=== PATIENT | male | born 2000 | race African-American/Black ===

== ENCOUNTER 2023-10-14 19:29 | Emergency (ER) | payer OTHER ==
[~2023-10-14] VITALS: Ht 172.7 cm; Wt 60.0 kg
[2023-10-14 19:37] VITALS: TEMP 98.5
[2023-10-14 20:12] LABS: EOSINOPHILS % (AUTO) 1.4 % (1.0-6.0); HEMATOCRIT 42.5 % (41-53); HEMOGLOBIN 14.1 g/dL (13.5-17.5); LYMPHOCYTES # (AUTO) 1.7 K/uL (1.0-4.8); LYMPHOCYTES % (AUTO) 48.2 % (22.0-44.0); MEAN CORPUSCULAR HGB CONC 33.3 G/dL (31.0-37.0); MEAN CORPUSCULAR VOLUME 84 fL (80-100); MONOCYTES # (AUTO) 0.5 K/uL (0.1-1.0); MONOCYTES % (AUTO) 13.5 % (2.0-9.0); NEUTROPHILS # (AUTO) 1.2 K/uL (1.8-7.7); NEUTROPHILS % (AUTO) 35.9 % (40.0-70.0); PLATELET COUNT (AUTO) 257 K/uL (150-450); RED BLOOD CELL COUNT(AUTO) 5.05 MIL/uL (4.50-5.90); RED CELL DISTRIBUTION WIDTH 14.5 % (11.5-14.5); WHITE BLOOD COUNT (AUTO) 3.5 K/uL (4.5-11.0)
[2023-10-14 20:52] LABS: ALCOHOL, BLOOD (SERUM) < 3 mg/dL (0-10)
[2023-10-14 21:02] LABS: ANION GAP 9 mmol/L (8-16); CALCIUM, TOTAL 8.8 mg/dL (8.8-10.5); CARBON DIOXIDE 27 mmol/L (22-29); CHLORIDE 100 mmol/L (98-107); CREATININE 1.05 mg/dL (0.60-1.30); GLOMERULAR FILTR. RATE CALC > 60 mL/min (>60); GLUCOSE,RANDOM 94 mg/dL (70-110); SODIUM SERUM 136 mmol/L (136-145); UREA NITROGEN, BLOOD 24 mg/dL (7-18)
[2023-10-14 21:11] LABS: ALANINE AMINOTRANSFERASE 23 U/L (12-78); ALKALINE PHOSPHATASE 82 U/L (46-116); ASPARTATE AMINOTRANSFERASE 17 U/L (15-37); BILIRUBIN,TOTAL 0.6 mg/dL (0.1-1.0); TOTAL PROTEIN, SERUM 8.5 g/dL (6.4-8.2)
[2023-10-14 21:22] LABS: PH,URINE DRUG SCREEN 5.5 (5.0-8.0)
[2023-10-14 21:56] LABS: ALCOHOL, URINE DRUG SCREEN NEGATIVE (NEGATIVE); AMPHET/METH SCREEN,URINE NEGATIVE (NEGATIVE); BARBITURATE SCREEN, URINE NEGATIVE (NEGATIVE); BENZODIAZEPINES SCREEN,URINE NEGATIVE (NEGATIVE); CANNABINOID SCREEN,URINE NEGATIVE (NEGATIVE); COCAINE SCREEN,URINE NEGATIVE (NEGATIVE); METHADONE SCREEN, URINE NEGATIVE (NEGATIVE); OPIATE SCREEN,URINE NEGATIVE (NEGATIVE); PHENCYCLIDINE SCREEN,URINE NEGATIVE (NEGATIVE)
[2023-10-14 23:33] VITALS: BP 131/82; PULSE 69; RESP 16
[2023-10-16] MEDS ORDERED: OLAN10TA22 PO (09:55)
== END 2023-10-14 23:55 | disposition home or self-care (01) ==
LOC: EMS 19:31
DX: F39 Unspecified mood [affective] disorder (principal); F22 Delusional disorders; F12.90 Cannabis use, unspecified, uncomplicated
CPT/HCPCS: 99283; 80053; 85025; 36415; 80307; G0480

== ENCOUNTER 2024-01-06 01:12 | Inpatient (IN) | payer MEDICAID ==
[~2024-01-06] VITALS: Ht 180.3 cm; Wt 79.8 kg
[~2024-01-06 01:12] MED LIST: OLAN10TA22 PO
[2024-01-06] MEDS ORDERED: HALOPERIDOL 5 MG TABLET PO PRN (03:00)
[2024-01-06] MEDS ORDERED: ZOLPIDEM TARTRATE 10 MG TABLET PO PRN (03:00)
[2024-01-06 04:34] VITALS: BP 116/65; PULSE 76; RESP 18; TEMP 97.5; O2SAT 100
[2024-01-06 08:44] VITALS: BP 110/55; PULSE 60; RESP 17; TEMP 97.5; O2SAT 100
[2024-01-06] MEDS ORDERED: IBUPROFEN 600 MG TABLET PO PRN (09:00)
[2024-01-06] MEDS ORDERED: LOPERAMIDE HCL 2 MG CAPSULE PO PRN (09:00)
[2024-01-06] MEDS ORDERED: ALBUTEROL SULFATE HFA 90 MCG/PUFF 8 GM INHALER IH PRN (09:00)
[2024-01-06] MEDS ORDERED: OMEPRAZOLE 20 MG CAPSULE PO PRN (09:00)
[2024-01-06] MEDS ORDERED: ACETAMINOPHEN 325 MG TABLET PO PRN (09:00)
[2024-01-06] MEDS ORDERED: BACITRACIN 28 GM OINTMENT TP PRN (09:00)
[2024-01-06] MEDS ORDERED: MAGNESIUM HYDROXIDE SUSPENSION 30 ML UDCUP PO PRN (09:00)
[2024-01-06] MEDS ORDERED: MAG HYDROX/ALUMINUM HYD/SIMETH ES 30 ML SUSPENSION UDCUP PO PRN (09:00)
[2024-01-06] MEDS ORDERED: PETROLATUM,WHITE 28 GM JELLY TP PRN (09:00)
[2024-01-06] MEDS ORDERED: BENZOCAINE/MENTHOL LOZENGE PO PRN (09:00)
[2024-01-06] MEDS ORDERED: CloNIDine HCL 0.1 MG TABLET PO PRN (09:00)
[2024-01-06] MEDS ORDERED: DOCUSATE SODIUM 100 MG CAPSULE PO PRN (09:00)
[2024-01-06] MEDS ORDERED: ONDANSETRON HCL 4 MG TABLET PO PRN (09:00)
[2024-01-06] MEDS: LORazepam 2 MG TABLET PO PRN (20:51)
[2024-01-06] MEDS: OLANZapine 10 MG TABLET PO SCH (20:51)
[2024-01-06 21:05] VITALS: BP 110/63; PULSE 71; RESP 16; TEMP 97.5; O2SAT 98
[2024-01-07 08:41] VITALS: BP 115/73; PULSE 61; RESP 17; TEMP 97.7; O2SAT 100
[2024-01-07] MEDS: RisperiDONE 3 MG TABLET PO SCH (16:17)
[2024-01-07] MEDS: OLANZapine 7.5 MG TABLET PO SCH (20:39)
[2024-01-07 20:54] VITALS: BP 102/63; PULSE 69; RESP 20; TEMP 98; O2SAT 99
[2024-01-08 09:11] VITALS: BP 108/55; PULSE 73; RESP 18; TEMP 97.8; O2SAT 99
[2024-01-08 20:46] VITALS: BP 110/50; PULSE 80; RESP 17; TEMP 98.3; O2SAT 100
[2024-01-09 09:59] VITALS: BP 130/74; PULSE 70; RESP 18; TEMP 97.8; O2SAT 100
[2024-01-09 21:05] VITALS: BP 116/63; PULSE 92; RESP 16; TEMP 97.5; O2SAT 97
[2024-01-10 08:50] VITALS: BP 116/63; PULSE 73; RESP 18; TEMP 97; O2SAT 95
[2024-01-10 20:35] VITALS: BP 104/65; PULSE 63; RESP 18; TEMP 97.9; O2SAT 99
[2024-01-11 08:29] VITALS: BP 123/70; PULSE 96; RESP 17; TEMP 98.1; O2SAT 100
[2024-01-11 20:00] VITALS: BP 105/63; PULSE 68; RESP 16; TEMP 97.6; O2SAT 99
[2024-01-12 08:15] VITALS: BP 118/76; PULSE 60; RESP 18; TEMP 98; O2SAT 98
[2024-01-12] MEDS: RisperiDONE 4 MG TABLET PO SCH (17:00)
[2024-01-12 20:45] VITALS: BP 123/69; PULSE 80; RESP 17; TEMP 97.3; O2SAT 100
[2024-01-13 08:55] VITALS: BP 116/67; PULSE 81; RESP 18; TEMP 97; O2SAT 100
[2024-01-13] MEDS ORDERED: RISP4TAB94 PO (13:07)
== END 2024-01-13 14:30 | disposition home or self-care (01) | DRG 750 ==
LOC: B3A 02:53 → B2S 01-08 12:45
PROVIDERS: ADMIT Psychiatry & Neurology Psychiatry; ATTEND Psychiatry & Neurology Psychiatry
DX: F20.9 Schizophrenia, unspecified (principal); F32.A Depression, unspecified; F41.9 Anxiety disorder, unspecified; K59.00 Constipation, unspecified; F12.90 Cannabis use, unspecified, uncomplicated; G47.00 Insomnia, unspecified; Z79.899 Other long term (current) drug therapy
CPT/HCPCS: Z7610

== ENCOUNTER 2024-01-19 10:03 | Inpatient (IN) | payer MEDICAID, OTHER ==
[~2024-01-19] VITALS: Ht 180.3 cm; Wt 80.3 kg
[~2024-01-19 10:03] MED LIST changes: -OLAN10TA22 PO; +RISP4TAB94 PO
[2024-01-19 11:07] LABS: COVID AG,FIA SOURCE NASAL SWAB
[2024-01-19] MEDS: HALOPERIDOL LACTATE 5 MG/ML VIAL IM ONE (11:23)
[2024-01-19] MEDS: DiphenhydrAMINE HCL 50 MG/ML VIAL IM ONE (11:23)
[2024-01-19] MEDS: LORazepam 2 MG/ML VIAL IM ONE (11:23)
[2024-01-19 11:25] LABS: SARS-COV2 (COVID) ANTIGEN,FIA Negative (Negative)
[2024-01-19 13:11] LABS: BASOPHILS % (AUTO) 0.9 % (0.0-2.0); EOSINOPHILS % (AUTO) 0.7 % (1.0-6.0); HEMATOCRIT 40.7 % (41-53); HEMOGLOBIN 13.3 g/dL (13.5-17.5); LYMPHOCYTES # (AUTO) 1.1 K/uL (1.0-4.8); MEAN CORPUSCULAR HEMOGLOBIN 27.4 pg (26.0-34.0); MEAN CORPUSCULAR HGB CONC 32.7 G/dL (31.0-37.0); MEAN CORPUSCULAR VOLUME 84 fL (80-100); MONOCYTES # (AUTO) 0.4 K/uL (0.1-1.0); NEUTROPHILS % (AUTO) 39.4 % (40.0-70.0); PLATELET COUNT (AUTO) 230 K/uL (150-450); RED BLOOD CELL COUNT(AUTO) 4.86 MIL/uL (4.50-5.90); RED CELL DISTRIBUTION WIDTH 13.9 % (11.5-14.5); WHITE BLOOD COUNT (AUTO) 2.5 K/uL (4.5-11.0)
[2024-01-19 13:25] LABS: ALCOHOL, BLOOD (SERUM) < 3 mg/dL (0-10)
[2024-01-19 13:32] LABS: ANION GAP 9 mmol/L (8-16); CALCIUM, TOTAL 8.7 mg/dL (8.8-10.5); CARBON DIOXIDE 27 mmol/L (22-29); CHLORIDE 102 mmol/L (98-107); CREATININE 0.94 mg/dL (0.60-1.30); GLOMERULAR FILTR. RATE CALC > 60 mL/min (>60); GLUCOSE,RANDOM 86 mg/dL (70-110); POTASSIUM 3.8 mmol/L (3.5-5.1); SODIUM SERUM 138 mmol/L (136-145); UREA NITROGEN, BLOOD 17 mg/dL (7-18)
[2024-01-19 13:43] LABS: APPEARANCE,URINE CLEAR (CLEAR); BILIRUBIN,URINE NEGATIVE (NEGATIVE); COLOR,URINE LIGHT YELLOW (YELLOW); GLUCOSE, URINE (UA) NEGATIVE (NEGATIVE); KETONES,URINE NEGATIVE (NEGATIVE); LEUKOCYTE ESTERASE ,URINE MODERATE (NEGATIVE); NITRATE,URINE NEGATIVE (NEGATIVE); OCCULT BLOOD,URINE NEGATIVE (NEGATIVE); PH,URINE 6.5 (5.0-8.0); PROTEIN,URINE 30-70 mg/dL (NEGATIVE); UROBILINOGEN,URINE <=1.0 mg/dL (<=1.0)
[2024-01-19 13:57] LABS: BACTERIA,URINE Few /HPF (None Seen); MUCUS,URINE Moderate LPF (None Seen); RBC,URINE None Seen /HPF (0-2); SQUAMOUS EPITHELIAL CELL,UR None Seen /LPF (None Seen)
[2024-01-19 15:15] VITALS: BP 152/80; PULSE 70; RESP 17; TEMP 97.8; O2SAT 98
[2024-01-19] MEDS ORDERED: PNEUMOCOCCAL VACCINE POLYVALENT 0.5 ML SYRINGE [PPSV23] IM. ONE (17:30)
[2024-01-19 20:07] VITALS: BP 152/80; PULSE 70; RESP 18; TEMP 97; O2SAT 96
[2024-01-20 08:10] VITALS: BP 131/69; PULSE 83; RESP 20; TEMP 97.8; O2SAT 99
[2024-01-20] MEDS: RisperiDONE 4 MG TABLET PO SCH (08:18)
[2024-01-20] MEDS ORDERED: IBUPROFEN 600 MG TABLET PO PRN (09:15)
[2024-01-20] MEDS ORDERED: ALBUTEROL SULFATE HFA 90 MCG/PUFF 8 GM INHALER IH PRN (09:15)
[2024-01-20] MEDS ORDERED: PETROLATUM,WHITE 28 GM JELLY TP PRN (09:15)
[2024-01-20] MEDS ORDERED: MAGNESIUM HYDROXIDE SUSPENSION 30 ML UDCUP PO PRN (09:15)
[2024-01-20] MEDS ORDERED: CloNIDine HCL 0.1 MG TABLET PO PRN (09:15)
[2024-01-20] MEDS ORDERED: MAG HYDROX/ALUMINUM HYD/SIMETH ES 30 ML SUSPENSION UDCUP PO PRN (09:15)
[2024-01-20] MEDS ORDERED: OMEPRAZOLE 20 MG CAPSULE PO PRN (09:15)
[2024-01-20] MEDS ORDERED: BENZOCAINE/MENTHOL LOZENGE PO PRN (09:15)
[2024-01-20] MEDS ORDERED: ONDANSETRON HCL 4 MG TABLET PO PRN (09:15)
[2024-01-20] MEDS ORDERED: LOPERAMIDE HCL 2 MG CAPSULE PO PRN (09:15)
[2024-01-20] MEDS ORDERED: BACITRACIN 28 GM OINTMENT TP PRN (09:15)
[2024-01-20] MEDS ORDERED: ACETAMINOPHEN 325 MG TABLET PO PRN (09:15)
[2024-01-20] MEDS ORDERED: DOCUSATE SODIUM 100 MG CAPSULE PO PRN (09:15)
[2024-01-20] MEDS ORDERED: LORazepam 2 MG/ML VIAL ONE (16:01)
[2024-01-20] MEDS ORDERED: HALOPERIDOL LACTATE 5 MG/ML VIAL ONE (16:01)
[2024-01-20] MEDS ORDERED: DiphenhydrAMINE HCL 50 MG/ML VIAL ONE (16:01)
[2024-01-20] MEDS: DiphenhydrAMINE HCL 50 MG/ML VIAL IM ONE (16:24)
[2024-01-20] MEDS: LORazepam 2 MG/ML VIAL IM ONE (16:24)
[2024-01-20] MEDS: HALOPERIDOL LACTATE 5 MG/ML VIAL IM ONE (16:25)
[2024-01-20 20:08] VITALS: BP 113/63; PULSE 69; RESP 17; TEMP 98; O2SAT 99
[2024-01-21 09:26] VITALS: BP 128/67; PULSE 76; RESP 18; TEMP 97.9; O2SAT 99
[2024-01-21] MEDS: HALOPERIDOL 5 MG TABLET PO PRN (09:57)
[2024-01-21] MEDS: LORazepam 2 MG TABLET PO PRN (09:57)
[2024-01-21] MEDS: DiphenhydrAMINE HCL 50 MG/ML VIAL IM ONE (10:38)
[2024-01-21] MEDS: HALOPERIDOL LACTATE 5 MG/ML VIAL IM ONE (10:39)
[2024-01-21] MEDS: LORazepam 2 MG/ML VIAL IM ONE (10:40)
[2024-01-21 20:28] VITALS: BP 121/66; PULSE 99; RESP 18; TEMP 97.2; O2SAT 97
[2024-01-22] MEDS: ZOLPIDEM TARTRATE 10 MG TABLET PO PRN (01:50)
[2024-01-22 08:06] VITALS: BP 124/60; PULSE 85; RESP 16; TEMP 97.6; O2SAT 95
[2024-01-22] MEDS: LORazepam 2 MG/ML VIAL IM ONE (09:48)
[2024-01-22] MEDS: DiphenhydrAMINE HCL 50 MG/ML VIAL IM ONE (09:48)
[2024-01-22] MEDS: HALOPERIDOL LACTATE 5 MG/ML VIAL IM ONE (09:48)
[2024-01-22 10:45] VITALS: BP 118/70; PULSE 80; RESP 17; TEMP 98; O2SAT 97
[2024-01-22 20:21] VITALS: BP 112/72; PULSE 72; RESP 17; TEMP 97.8; O2SAT 97
[2024-01-23 08:04] VITALS: BP 111/65; PULSE 104; RESP 18; TEMP 97.3; O2SAT 97
[2024-01-23 20:20] VITALS: RESP 16
[2024-01-24 08:03] VITALS: BP 111/67; PULSE 107; RESP 18; TEMP 97.8; O2SAT 97
[2024-01-24 20:10] VITALS: BP 102/59; PULSE 61; RESP 18; TEMP 98.2; O2SAT 98
[2024-01-25 08:17] VITALS: BP 119/60; PULSE 100; RESP 16; TEMP 97.7; O2SAT 95
[2024-01-25 20:01] VITALS: BP 117/64; PULSE 77; RESP 16; TEMP 97.5; O2SAT 98
[2024-01-26 08:08] VITALS: BP 117/63; PULSE 91; RESP 17; TEMP 97.3; O2SAT 96
== END 2024-01-26 12:00 | disposition home or self-care (01) | DRG 750 ==
LOC: EMS 10:03 → B3A 13:08
PROVIDERS: ADMIT Psychiatry & Neurology Psychiatry; ATTEND Psychiatry & Neurology Psychiatry
DX: F25.9 Schizoaffective disorder, unspecified (principal); R45.850 Homicidal ideations; Z20.822 Contact with and (suspected) exposure to COVID-19; F32.A Depression, unspecified; F41.9 Anxiety disorder, unspecified; G47.00 Insomnia, unspecified; K59.00 Constipation, unspecified; Z59.02 Unsheltered homelessness; F12.90 Cannabis use, unspecified, uncomplicated
CPT/HCPCS: 80048; 81001; 85025; 87081; 87086; 87186; 96372; 99285; G0480; J1200; J1630; J2060